=== PATIENT | male | born 1995 | race Caucasian/White ===

== ENCOUNTER 2021-05-11 18:44 | Emergency (ER) | payer MEDICAID, SELFPAY ==
[2021-05-11 18:48] VITALS: BP 151/82; PULSE 108; RESP 17; TEMP 37.3; O2SAT 99
--- NOTE | 2021-05-11 19:02 | ED.GENADUL_ITS ---
Discharge Plan Disposition Patient Disposition: HOME Condition: Improving Discharge Details Clinical Impression: Acute bronchospasm, Pneumonia Primary Care Provider: Unknown,Unknown ED Provider: Keenan Ewing Home Meds and New Rx's Prescriptions: New prednisone 50 mg tablet 50 mg PO DAILY 5 Days Qty: 5 RF: 0 cefpodoxime 200 mg tablet 200 mg PO BID 10 Days Qty: 20 RF: 0 Discharge Instructions Instructions: Bronchospasm (ED), Pneumonia (ED) Additional Instructions: Continue to hydrate with small, frequent sips of fluids. Take antibiotics and prednisone as prescribed, next dose is will be tomorrow morning. Albuterol inhaler 1 to 2 puffs every 4 hours as needed for persistent cough or wheezing. Return or seek reevaluation at nearest health care facility if you feel you need to use the inhaler more than every 2 hours. Continue your efforts to decrease smoking. Return for any acute concerns. Medical Decision Making 25-year-old male presents from home complaining of 2 weeks of cough, congestion, production of green and yellow sputum. States she had a negative Covid test for work last week. He is a smoker but has not previously used an inhaler. Patient arrives to the ER with initial tachycardia of 108 at triage, improved to approximately 90 by the time of my exam while at rest. His has bilateral end expiratory wheeze present on exam. Differential diagnosis includes bronchitis with bronchospasm, pneumonia. Patient referred for chest x-ray. Given burst of oral prednisone for its anti- inflammatory effect as well as inhaled beta agonist therapy with albuterol inhaler which he was dispensed. Chest x-ray demonstrates haziness at the left base and I am concerned for developing pneumonia. Discussed the patient administration of parenteral fluids and a an initial dose of antibiotic. He states to me he wishes to avoid IV therapy. He questions whether oral antibiotics and oral hydration are appropriate and I do feel given his young age and relatively robust health that this is reasonable. Patient given Cefpodoxime. He will continue a burst of prednisone for bronchospasm and use the albuterol inhaler. He will continue to decrease inhaled tobacco and marijuana products. He understands homecare as well as indications to seek reevaluation. HPI General Mode of arrival: ambulatory . Date/Time Provider Initiated Documentation: 05/11/21 18:45 . Limitations to Documentation: no limitations . Information obtained by: patient . History of Present Illness 25 year old M presents to the emergency department with the chief complaint of Cough, congestion, production of sputum now for 2 weeks., described as moderate and similar to prior episodes, Quality is described as dull and constant, and is localized to the chest. Patient reports no radiation. Patient started experiencing this week(s) and it has been intermittent. No relieving factors improve symptom(s), No exacerbating factors reported . Patient notes cough; denies chest pain, nausea/vomiting and shortness of breath. Patient did receive the following treatments prior to arrival, none Related Data Home Medications Medication Instructions Recorded Confirmed cefpodoxime 200 mg PO BID 10 Days #20 tab 05/11/21 prednisone 50 mg PO DAILY 5 Days #5 tab 05/11/21 Previous Rx's Medication Instructions Recorded cefpodoxime 200 mg PO BID 10 Days #20 tab 05/11/21 prednisone 50 mg PO DAILY 5 Days #5 tab 05/11/21 Allergies Allergy/AdvReac Type Severity Reaction Status Date / Time No Known Allergies Allergy Unverified 05/11/21 18:51 General Stated Complaint: RespSymp RHODA: 4 Review of Systems Narrative: Smokes tobacco and marijuana daily. No known sick contacts. Reports a negative Covid test for work last week. No chest pain, leg pain or swelling. No prolonged immobilization or travel. 6 systems reviewed and otherwise negative [facility] Social History Smoking/Tobacco Use Status: Current every day Tobacco Type: cigarettes Smoking risk assessment performed?: Yes Alcohol Intake: current Alcohol Intake frequency: a few times a month Drug use: Daily Substance use type: marijuana Do you feel safe at home: Yes Do you feel safe in your relationship?: Yes Exam Narrative Exam Narrative: GEN: awake, alert, oriented 3. Pleasant, well groomed, interactive. Speaking in full sentences, no distress. HEAD: Normocephalic, atraumatic ENT: Mucous membranes moist, oropharynx unremarkable, External ear exam unremarkable EYES: PERRL, EOMI NECK: Full ROM, no OUMOU, no menigismus CHEST/RESP: Nontender, bilateral end expiratory wheeze present and cough noted. CARDIOVASCULAR: Not tachycardic at the time of my exam. RRR, no murmur, rub scott. 2+ Rad pulse bilateral ABDOMEN: Soft, nontender, no mass. +Bowel sounds EXT: Full ROM, no edema, no rash Neuro: Grossly normal neurologic exam, conversant, interactive. Psych: Speech fluent, thoughts congruent, affect normal Course Vital Signs Vital signs: Vital Signs Temperature 37.3 C 05/11/21 18:48 Pulse 108 H 05/11/21 18:48 Respiratory Rate 17 05/11/21 18:48 Blood Pressure 151/82 H 05/11/21 18:48 Pulse Oximetry 99 05/11/21 18:48 Temperature 37.3 C 05/11/21 18:48 Temperature Source Temporal Artery Scan 05/11/21 18:48 Pulse 108 H 05/11/21 18:48 Respiratory Rate 17 05/11/21 18:48 Respiratory Effort Non-Labored 05/11/21 18:52 Blood Pressure 151/82 H 05/11/21 18:48 Blood Pressure Position Sitting 05/11/21 18:48 Pulse Oximetry 99 05/11/21 18:48 Oxygen Delivery Method Room Air 05/11/21 18:48 Oxygen Flow Rate 0 05/11/21 18:48 Pain Level 0 05/11/21 18:48
[2021-05-11] MEDS: Inhaler, Assist Device 1 EACH MC (19:07)
[2021-05-11] MEDS: Albuterol HFA 8 GM 60 PUFF INH IH (19:07)
[2021-05-11] MEDS: predniSONE 20 MG TAB 60 MG PO (19:07)
--- NOTE | 2021-05-11 19:15 | DI.RAD_ITS ---
Exam(s) XR CHEST 2V PA LATERAL EXAM: XR CHEST 2V PA LATERAL CLINICAL HISTORY: cough, sputum. TECHNIQUE: 2D digital imaging was performed. COMPARISON: Prior chest x-ray 05/11/2021 FINDINGS: Heart size is normal. The mediastinum is not widened. There is bilateral hyperinflation noted Mild increased markings are noted in the lingular segment of the left lung and right middle lobe, bes t seen on the lateral view. No pleural effusions. No pneumothorax. IMPRESSION: Bilateral hyperinflation. Subtle increased markings in the lingular segment of the left lung and rig ht middle lobe. These are best evident on the lateral view and less evident on the frontal view. No pleural effusions and there is no pneumothorax. DATA REPOSITORY: RADIATION DOSE DELIVERED:
[2021-05-11] MEDS: Cefpodoxime 200 MG TAB PO (19:34)
--- NOTE | 2021-05-11 20:12 | DI.VRAD_ITS ---
PROCEDURE INFORMATION: Exam: XR Chest Exam date and time: 05/11/2021 7:02 PM Age: 25 years old Clinical indication: Patient HX: Productive cough, sputum. TECHNIQUE: Imaging protocol: XR of the chest. Views: 2 views. COMPARISON: No relevant prior studies available. FINDINGS: Lungs: Atelectatic and/or early infiltrative changes noted within the lung bases, greater on the left. Mild bilateral hyperinflation. Pleural spaces: Unremarkable. No pleural effusion. No pneumothorax. Heart/Mediastinum: Unremarkable. No cardiomegaly. Bones/joints: Unremarkable. IMPRESSION: 1. Atelectatic and/or early infiltrative changes noted within the lung bases, greater on the left. 2. Mild bilateral hyperinflation. Dictated and Authenticated by: Je Gil MD. Ordering:CAROLINE Hussein MD
--- NOTE | 2021-05-12 14:09 | NUR.NOTE ---
Nursing Note: Patient called asking if prescriptions had been faxed to his pharmacy in [place]. In looking at the discharge, it looks like all he got were printed prescriptions. He stated he did have them, but was under the impression that they were also being faxed. Frances Weinstein
== END 2021-05-11 19:35 | disposition home or self-care (01) ==
PROVIDERS: Emergency Provider Emergency Medicine
DX: J18.9 Pneumonia, unspecified organism (principal); J98.01 Acute bronchospasm; F17.210 Nicotine dependence, cigarettes, uncomplicated
CPT/HCPCS: 99283; 71046; J7512